=== PATIENT | male | born 1985 | race Caucasian/White ===

== ENCOUNTER 2021-05-26 10:33 | Emergency (ER) | payer MEDICAID ==
[~2021-05-26] VITALS: Ht 188 cm; Wt 115.7 kg
[2021-05-26 10:42] VITALS: BP 153/82
--- NOTE | 2021-05-26 10:52 | NUR ---
36 YO MALE BIBS WITH C/O LEFT THUMB LACERATION, 10/10 PAIN. 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 BLEEDING CONTROLLED AT THIS TIME. PATIENT IS A&OX4, RR EVEN AND UNLABORED. MEDHX: DENIES ALLERGIES: DENIES
--- NOTE | 2021-05-26 11:22 | NUR ---
APPLIED DURMABOND TO PTS LEFT THUMB LAC PER ERMD ORDERS
[2021-05-26] MEDS ORDERED: CEPH-588 PO (12:18)
== END 2021-05-26 12:58 | disposition home or self-care (01) ==
LOC: MED 10:33
DX: S61.012A Laceration without foreign body of left thumb without damage to nail, initial encounter (principal); D16.12 Benign neoplasm of short bones of left upper limb; Z79.899 Other long term (current) drug therapy; X58.XXXA Exposure to other specified factors, initial encounter; Y93.89 Activity, other specified; Y92.89 Other specified places as the place of occurrence of the external cause; Y99.8 Other external cause status
CPT/HCPCS: 12001; 73130; 99283; Q0092